=== PATIENT | female | born 1970 | race Caucasian/White ===

== ENCOUNTER 2020-12-26 17:32 | Emergency (ER) | payer BC, OTHER ==
[2020-12-26] MEDS ORDERED: IBUPROFEN600 MG PO (20:21)
== END 2020-12-26 20:24 | disposition home or self-care (01) ==
LOC: ER1 17:32
DX: S40.011A Contusion of right shoulder, initial encounter (principal); S50.01XA Contusion of right elbow, initial encounter; I10 Essential (primary) hypertension; W01.0XXA Fall on same level from slipping, tripping and stumbling without subsequent striking against object, initial encounter; Y92.69 Other specified industrial and construction area as the place of occurrence of the external cause; Y99.0 Civilian activity done for income or pay
CPT/HCPCS: 73030; 73080; 73110; 99283

== ENCOUNTER → 2021-07-22 | Outpatient (CLI) | payer BC, OTHER ==
[~2021-07-22] MED LIST: IBUPROFEN600 MG PO
[2021-07-22 08:53] LABS: HEMOGLOBIN 13.7 gm/dl (12.3-15.3); RED BLOOD COUNT 4.81 M/UL (4.00-5.10); WHITE BLOOD COUNT 5.7 K/UL (4.5-11.0)
[2021-07-22 09:10] LABS: BUN/CREATININE RATIO 26 (0-10)
[2021-07-23 07:09] LABS: THYROXINE (T4) 8.3 ug/dL (4.5-12.0)
[2021-07-24 05:11] LABS: VITAMIN D, 25-HYDROXY 30.6 ng/mL (30.0-100.0)
== END ==
LOC: EROP 08:16
PROVIDERS: Nurse Practitioner Family
DX: I10 Essential (primary) hypertension (principal); E11.9 Type 2 diabetes mellitus without complications; E78.5 Hyperlipidemia, unspecified; E55.9 Vitamin D deficiency, unspecified; R53.82 Chronic fatigue, unspecified
CPT/HCPCS: 36415; 80053; 80061; 81001; 83036; 84436; 84443; 84480; 85025